=== PATIENT | male | born 1950 | race Caucasian/White ===

== ENCOUNTER 2021-02-25 12:59 | Emergency (ER) | payer MEDICARE, SELFPAY ==
[~2021-02-25 12:59] MED LIST: Iopamidol 370 76% 100 ML VIAL ONE
[2021-02-25 13:44] LABS: #Basophils 0.1 thou/uL (0.0-0.2); #Eosinphils 0.2 thou/uL (0.0-0.7); #Monocytes 1.2 thou/uL (0.11-0.59); #Neutrophils 10.6 thou/uL (1.40-6.50); %Basophils 0.5 % (0.0-1.0); %Eosinophils 1.5 % (0.0-10.0); %Lymphocytes 7.9 % (21.0-51.0); %Monocytes 9.1 % (0.0-10.0); Hemoglobin 14.9 g/dL (14.0-18.0); Mean Corpuscular HGB CONC 32.5 g/dL (32.0-36.0); Mean Corpuscular Hemoglobin 29.2 pg (27.0-31.0); Mean Corpuscular Volume 89.8 fL (78.0-98.0); Mean Platelet Volume 7.7 fL (7.4-10.4); Platelet Count 227 thou/uL (130-400); RBC Distribution Width 11.9 % (11.5-14.5); Red Blood Cell (RBC) Count 5.09 mill/uL (4.70-6.10)
[2021-02-25 14:01] LABS: ALT (SGPT) 17 U/L (8-55); AST (SGOT) 17 U/L (5-34); Albumin 3.7 g/dL (3.4-4.8); Alkaline Phosphatase 57 U/L (40-110); Anion Gap 15 mmol/L (10-20); BUN (Urea Nitrogen) 14 mg/dL (8.4-25.7); Bilirubin, Total 0.5 mg/dL (0.2-1.2); Calc. Creatinine Clearance 0 mL/min (70-130); Calcium 9.4 mg/dL (7.8-10.44); Carbon Dioxide 24 mmol/L (23-31); Chloride 103 mmol/L (98-107); Glucose 132 mg/dL (83-110); Magnesium 1.9 mg/dL (1.6-2.6); Potassium 3.7 mmol/L (3.5-5.1); Protein, Total 6.7 g/dL (5.8-8.1); Sodium 138 mmol/L (136-145)
[2021-02-25 16:48] LABS: Troponin I Less than 0.010 ng/mL (< 0.028)
[2021-03-03 06:14] LABS: Norovirus GI Negative (Negative); Norovirus GII Negative (Negative)
== END 2021-02-25 17:34 | disposition home or self-care (01) ==
LOC: MADERS 12:59
DX: R55 Syncope and collapse (principal); R19.7 Diarrhea, unspecified; E11.9 Type 2 diabetes mellitus without complications; I10 Essential (primary) hypertension; E27.40 Unspecified adrenocortical insufficiency
CPT/HCPCS: 36415; 36416; 71045; 74177; 80053; 83735; 83880; 84484; 85025; 87045; 87046; 87081; 87177; 87324; 87427; 87449; 87798; 93005; Q9967